=== PATIENT | female | born 1980 | race Caucasian/White ===

== ENCOUNTER 2016-11-20 13:31 | Emergency (ER) | payer SELFPAY ==
[~2016-11-20 13:31] MED LIST: DORYX100 M1 PO; FLAGYL PO; PEPCID AC20 MG PO; PHENERGAN PO; ZOFRAN PO
== END 2016-11-20 13:35 | disposition home or self-care (01) ==
LOC: CFTX 13:31
DX: R20.2 Paresthesia of skin (principal); F17.210 Nicotine dependence, cigarettes, uncomplicated
CPT/HCPCS: 99282